=== PATIENT | female | born 1960 | race Caucasian/White ===

== ENCOUNTER → 2016-07-04 | Outpatient (REF) | payer OTHER ==
[2016-07-04 18:37] LABS: TOTAL PROTEIN 7.1 GM/DL (6.4-8.2)
[2016-07-04 18:50] LABS: BASO # 0.1 K/mm3 (0.0-0.2); BASO % 0.7 % (0.0-1.0); EOS % 20.5 % (0.0-3.0); LARGE UNSTAINED CELL # 0.1 K/mm3 (0.0-0.4); LARGE UNSTAINED CELL % 1.3 % (0.0-4.0); LYMPH # 2.8 K/mm3 (1.5-4.5); LYMPH % 28.5 % (24.0-44.0); MEAN CORPUSCULAR HEMOGLOBIN 30.1 pg (27.0-33.0); MEAN CORPUSCULAR VOLUME 93.9 fl (80.0-96.0); MONO # 0.5 K/mm3 (0.0-0.8); MONO % 5.1 % (0.0-5.0); NEUTROPHILS # 4.2 K/mm3 (1.8-7.7); NEUTROPHILS % 43.9 % (36.0-66.0); PLATELET COUNT, AUTOMATED 272 k/mm3 (150-450); RED CELL DISTRIBUTION WIDTH 12.4 % (11.5-14.5); WHITE BLOOD COUNT 9.6 K/mm3 (4.0-10.0)
[2016-07-04 20:13] LABS: ERYTHROCYTE SEDIMENTATION RATE 12 mm/hr (0-30)
[2016-07-06 11:24] LABS: ALBUMIN % 62.3 % (55.8-66.1); GAMMA GLOBULIN % 10.5 % (11.1-18.8)
[2016-07-06 11:25] LABS: ALBUMIN 4.42 GM/DL (3.29-5.55)
== END ==
LOC: M SFHCCLAY 11:29
PROVIDERS: ATTEND Family Medicine
DX: J32.9 Chronic sinusitis, unspecified (principal); H10.13 Acute atopic conjunctivitis, bilateral

== ENCOUNTER → 2016-07-13 | Outpatient (REF) | payer OTHER | LOC: M SFHCCLAY 15:46 | PROVIDERS: ATTEND Family Medicine | DX: D72.1 Eosinophilia (principal) ==

== ENCOUNTER → 2016-07-14 | Outpatient (REF) | payer OTHER ==
[~2016-07-14] MED LIST: ADV250INH; ALLE180T33 PO; MONT10TA2; MUCI30TA2 PO; PANT40TA2; PATA0.2S; PROA1AER
== END ==
LOC: M SFHCCLAY 23:59
PROVIDERS: ATTEND Family Medicine
DX: D72.1 Eosinophilia (principal); J45.41 Moderate persistent asthma with (acute) exacerbation

== ENCOUNTER → 2016-07-15 | Outpatient (REF) | payer OTHER | LOC: M SFHCCLAY | PROVIDERS: ATTEND Family Medicine | DX: D72.1 Eosinophilia (principal); J45.41 Moderate persistent asthma with (acute) exacerbation ==

== ENCOUNTER → 2016-07-16 | Outpatient (REF) | payer OTHER ==
[2016-07-16 18:01] LABS: MEAN CORPUSCULAR HEMOGLOBIN 30.4 pg (27.0-33.0); MEAN CORPUSCULAR HGB CONC 32.9 g/dl (32.0-36.5); MEAN CORPUSCULAR VOLUME 92.4 fl (80.0-96.0); PLATELET COUNT, AUTOMATED 229 k/mm3 (150-450); RED CELL DISTRIBUTION WIDTH 12.3 % (11.5-14.5); WHITE BLOOD COUNT 10.6 K/mm3 (4.0-10.0)
[2016-07-16 21:17] LABS: BASOPHILS 2 % (0-4); EOSINOPHILS 32 % (0-5)
== END ==
LOC: M SFHCCLAY 10:48
PROVIDERS: ATTEND Family Medicine
DX: D72.1 Eosinophilia (principal); J45.41 Moderate persistent asthma with (acute) exacerbation

== ENCOUNTER 2016-07-19 02:36 | Emergency (ER) | payer BC, OTHER ==
[2016-07-19] MEDS ORDERED: methylPREDNISolone INJ 125 MG/2 ML VIAL (J2930) IV ONE (03:00)
[2016-07-19] MEDS ORDERED: diphenhydrAMINE INJ 50MG/ML VIAL (J1200) IV ONE (03:00)
[2016-07-19] MEDS ORDERED: FAMOTIDINE IV BAG 20 MG in APPROPRIATE DILUENT 1 EA IV ONE (03:00)
[2016-07-19] MEDS ORDERED: MUCI30TA2 PO (03:01)
[2016-07-19] MEDS ORDERED: ALLE180T33 PO (03:01)
[2016-07-19] MEDS ORDERED: ADV250INH (03:01)
[2016-07-19] MEDS ORDERED: PROA1AER (03:01)
[2016-07-19] MEDS ORDERED: PATA0.2S (03:01)
[2016-07-19] MEDS ORDERED: PANT40TA2 (03:01)
[2016-07-19] MEDS ORDERED: MONT10TA2 (03:01)
[2016-07-19 04:19] VITALS: BP 142/75
== END 2016-07-19 04:25 | disposition home or self-care (01) ==
LOC: M ED 03:41
DX: H57.8 Other specified disorders of eye and adnexa (principal); J45.909 Unspecified asthma, uncomplicated; J32.9 Chronic sinusitis, unspecified; Z79.899 Other long term (current) drug therapy; D64.9 Anemia, unspecified
CPT/HCPCS: 96374; 96375; 99284; J1200; J2930

== ENCOUNTER → 2016-07-19 | Outpatient (REF) | payer OTHER ==
[2016-07-19 16:48] LABS: ANION GAP 11 MEQ/L (8-16); BLOOD UREA NITROGEN 12 MG/DL (7-18); CALCIUM LEVEL 8.7 MG/DL (8.5-10.1); CARBON DIOXIDE LEVEL 26 MEQ/L (21-32); CHLORIDE LEVEL 106 MEQ/L (98-107); CREATININE FOR GFR 0.74 MG/DL (0.55-1.02); GLOMERULAR FILTRATION RATE > 60.0 (>51); GLUCOSE, FASTING 137 MG/DL (70-105); POTASSIUM SERUM 4.2 MEQ/L (3.5-5.1); SODIUM LEVEL 143 MEQ/L (136-145)
[2016-07-19 16:49] LABS: BASO % 0.3 % (0.0-1.0); EOS # 0.3 K/mm3 (0.0-0.50); LYMPH # 0.5 K/mm3 (1.5-4.5); LYMPH % 4.9 % (24.0-44.0); MEAN CORPUSCULAR HEMOGLOBIN 29.5 pg (27.0-33.0); MEAN CORPUSCULAR HGB CONC 32.2 g/dl (32.0-36.5); MEAN CORPUSCULAR VOLUME 91.6 fl (80.0-96.0); MONO # 0.2 K/mm3 (0.0-0.8); MONO % 1.7 % (0.0-5.0); NEUTROPHILS # 7.8 K/mm3 (1.8-7.7); NEUTROPHILS % 89.4 % (36.0-66.0); RED CELL DISTRIBUTION WIDTH 12.4 % (11.5-14.5); WHITE BLOOD COUNT 8.8 K/mm3 (4.0-10.0)
[2016-07-19 16:52] LABS: EOS % 3.4 % (0.0-3.0)
[2016-07-19 17:20] LABS: EOSINOPHILS 2 % (0-5)
== END ==
LOC: M SFHCCLAY 11:14
PROVIDERS: ATTEND Family Medicine
DX: H10.13 Acute atopic conjunctivitis, bilateral (principal)

== ENCOUNTER → 2016-07-20 | Outpatient (CLI) | payer BC, OTHER ==
--- NOTE | 2016-07-20 10:35 | REP ---
Chest x-ray: Two views. History: Sinus infection. Allergic reaction. Comparison chest x-ray July 28, 2015. Findings: The lungs are symmetrically aerated. Pleural angles are sharp. There is a somewhat linear area of increased density in the parenchyma of the left upper lobe in the lingular segment adjacent left heart border which may be discoid atelectasis. Cardiac silhouette is slightly prominent with cardiothoracic ratio 15.7 cm over 29.0 cm. Previous cardiothoracic ratio was 13.2 over 28.9 cm. Pulmonary vasculature is not increased. Impression: Linear area of increased density in the lingular segment left upper lobe may be discoid atelectasis. Mildly prominent heart on today's chest x-ray. Signed by Dominik Yuan MD 07/20/2016 10:46 A
[2016-07-20 15:25] LABS: COMPLEMENT C3 130 MG/DL (90-180); COMPLEMENT C4 23.9 MG/DL (10-40); IMMUNOGLOBULIN A 69.5 MG/DL (70-400); IMMUNOGLOBULIN G 765 MG/DL (681-1648); IMMUNOGLOBULIN M 85.3 MG/DL (40-230)
[2016-07-24 00:10] LABS: COMPLEMENT TOTAL (CH50) 50 U/mL (42-60); IgG SERUM (part of Subclasses) 716 mg/dL (700-1600); IgG Subclass 1 492 mg/dL (422-1292); IgG Subclass 2 144 mg/dL (117-747); IgG Subclass 3 42 mg/dL (41-129); IgG Subclass 4 18 mg/dL (1-291)
== END ==
LOC: M SMT 09:36
PROVIDERS: ATTEND Allergy & Immunology Allergy
DX: J45.40 Moderate persistent asthma, uncomplicated (principal); K21.9 Gastro-esophageal reflux disease without esophagitis; J30.9 Allergic rhinitis, unspecified

== ENCOUNTER → 2016-08-10 | Outpatient (REF) | payer OTHER | LOC: M SFHCCLAY 07:51 | PROVIDERS: ATTEND Nurse Practitioner Family | DX: E78.4 Other hyperlipidemia (principal); E55.9 Vitamin D deficiency, unspecified ==

== ENCOUNTER → 2016-08-10 | Outpatient (CLI) | payer BC, OTHER ==
--- NOTE | 2016-08-10 10:19 | REP ---
Clinical: Eosinophilia. Technique: Real time nguyen scale ultrasound examination using curved array transducer. Findings: Liver and pancreas are normal in contour, size, echogenicity without focal hepatic or pancreatic lesions identified. The gallbladder is normal and without gallstones, wall thickening, or pericholecystic fluid. No biliary ductal dilatation is appreciated and the common bile duct measures 4 mm diameter. The right kidney is normal in reniform shape without hydronephrosis measuring 11.1 x 4.8 x 4.2 cm with 8 mm lower pole cyst. No ascites in the visualized right upper quadrant. Impression: Essentially normal right upper quadrant ultrasound examination. 8 mm lower pole renal cyst. Signed by Geremias Roman MD 08/10/2016 10:10 A
== END ==
LOC: M RAD 08:42
PROVIDERS: ATTEND Family Medicine
DX: D72.1 Eosinophilia (principal)

== ENCOUNTER → 2016-09-07 | Outpatient (CLI) | payer BC, OTHER ==
--- NOTE | 2016-09-07 11:26 | REP ---
MAXILLOFACIAL CT WITHOUT CONTRAST: HISTORY: Chronic maxillary sinusitis. 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 The patient is status post bilateral uncinectomy and partial ethmoidectomy. Mild mucosal thickening is present in the residual ethmoid sinuses. Moderate mucosal thickening is present in the sphenoid and right maxillary sinuses. There is almost complete opacification of the left maxillary sinus. There is complete opacification of the right frontal sinus. The middle and inferior nasal turbinates are partially paradoxical. The nasal septum is midline. The nasal septum abuts the middle nasal turbinates. The cribriform plate, medial vallejo of the orbits and optic canals are intact. The carotid canals form a segment of the posterolateral vallejo of the sphenoid sinus. IMPRESSION: 1. Postoperative change as described above. 2. Sinus mucosal thickening as described above. The mucosal thickening is increased compared to the previous study. Signed by Isra Rosario MD 09/07/2016 11:37 A
== END ==
LOC: M RAD 10:09
PROVIDERS: ATTEND Family Medicine
DX: J32.0 Chronic maxillary sinusitis (principal)

== ENCOUNTER → 2016-09-14 | Outpatient (CLI) | payer BC, OTHER ==
--- NOTE | 2016-09-14 09:27 | REP ---
CT NECK WITHOUT CONTRAST: HISTORY: Chronic cough. The naso-, jessie-, and hypopharynx, larynx, and subglottic trachea are normal in appearance. The salivary and thyroid glands are normal. Small lymph nodes less than 1 cm in size are present in the internal jugular chains, posterior triangles, submandibular, submental and supraclavicular areas. Minimal degenerative change is present in the cervical spine. The lung apices are clear. Mucosal thickening is present in the maxillary and sphenoid sinuses. IMPRESSION: There is no neck mass or adenopathy. Signed by Isra Rosario MD 09/14/2016 10:56 A
--- NOTE | 2016-09-14 14:21 | REP ---
REASON: Chronic cough and wheezing. The lack of intravenous contrast decreases the sensitivity of the exam. There is no mediastinal or hilar adenopathy. T here are no pleural or pericardial effusions. The imaged upper abdomen and imaged osseous structures are within normal limits. Evaluation of the lung hood show no abnormal nodules, masses, or opacities. Minimal fibrotic changes are suspected in the inferior right upper lobe anteriorly. IMPRESSION: No acute disease with findings as described above. Signed by Marbin Mehta DO 09/14/2016 05:01 P
== END ==
LOC: M RAD 08:09
PROVIDERS: ATTEND Family Medicine
DX: R05 Cough (principal); R06.2 Wheezing

== ENCOUNTER → 2016-09-14 | Outpatient (CLI) | payer BC, OTHER ==
[2016-09-20 14:18] LABS: STREP PNEUMO TYPE 12F 2.7 ug/mL (>1.3); STREP PNEUMO TYPE 18C 2.1 ug/mL (>1.3); STREP PNEUMO TYPE 19A 1.1 ug/mL (>1.3); STREP PNEUMO TYPE 19F 2.2 ug/mL (>1.3); STREP PNEUMO TYPE 23F 0.8 ug/mL (>1.3); STREP PNEUMO TYPE 6B 0.6 ug/mL (>1.3); STREP PNEUMO TYPE 7F 4.6 ug/mL (>1.3); STREP PNEUMO TYPE 9N 3.9 ug/mL (>1.3); STREP PNEUMO TYPE 9V 4.1 ug/mL (>1.3)
== END ==
LOC: M SMT 09:10
PROVIDERS: ATTEND Allergy & Immunology Allergy
DX: D84.9 Immunodeficiency, unspecified (principal)

== ENCOUNTER 2016-10-19 12:03 | Outpatient (RCR) | payer BC, OTHER ==
[~2016-10-19 12:03] MED LIST changes: -ADV250INH; +ADV250INH INH; -MONT10TA2; +MONT10TA2 PO; -MUCI30TA2 PO; +MUCI30TA5 PO; -PROA1AER; +PROAAER10 INH
== END 2016-11-09 ==
LOC: M ST 12:03
PROVIDERS: ATTEND Family Medicine
DX: J38.3 Other diseases of vocal cords (principal)

== ENCOUNTER 2016-12-03 20:39 | Inpatient (IN) | payer BC, OTHER ==
[~2016-12-03] VITALS: Ht 157.5 cm; Wt 87.5 kg
[2016-12-03] MEDS ORDERED: LORazepam 2 MG/ML VIAL (J2060) IV STA (21:01)
[2016-12-03] MEDS ORDERED: OLOP1DRO OU (21:02)
[2016-12-03] MEDS ORDERED: LEVO500T3 PO (21:02)
[2016-12-03] MEDS ORDERED: IBUP-1114 PO (21:02)
[2016-12-03] MEDS ORDERED: FLON1SPR (21:02)
[2016-12-03] MEDS ORDERED: methylPREDNISolone INJ 125 MG/2 ML VIAL (J2930) IV ONE (21:15)
[2016-12-03] MEDS: IPRATROPIUM 0.5MG/ALBUTEROL 2.5MG INH SOL UD 3ML (DUONEB)(J7620) NEB SCH ×2 (21:17→21:18)
[2016-12-03 23:55] LABS: ABG BASE EXCESS 0.1 (-2.0-2.0); ABG HCO3 24.6 MEQ/L (22.0-26.0); ABG PARTIAL PRESSURE CO2 39.3 mmHg (35.0-45.0); ABG PARTIAL PRESSURE O2 54.3 mmHg (75.0-100.0); ABG STANDARD HCO3 24.4 MEQ/L (22.0-26.0); ABG TOTAL CO2 25.8 MEQ/L (22.0-29.0); ABG pH (ARTERIAL) 7.414 UNITS (7.350-7.450)
[2016-12-04] VITALS (7 sets, daily range): BP systolic 132–161; BP diastolic 67–93; O2SAT 93
[2016-12-04 00:23] LABS: BASO % 0.3 % (0.0-1.0); EOS # 4.6 K/mm3 (0.0-0.50); EOS % 29.1 % (0.0-3.0); LARGE UNSTAINED CELL # 0.1 K/mm3 (0.0-0.4); LARGE UNSTAINED CELL % 0.7 % (0.0-4.0); LYMPH # 1.1 K/mm3 (1.5-4.5); LYMPH % 6.1 % (24.0-44.0); MEAN CORPUSCULAR HEMOGLOBIN 30.4 pg (27.0-33.0); MEAN CORPUSCULAR HGB CONC 33.4 g/dl (32.0-36.5); MONO # 0.2 K/mm3 (0.0-0.8); MONO % 1.5 % (0.0-5.0); NEUTROPHILS # 9.8 K/mm3 (1.8-7.7); NEUTROPHILS % 62.3 % (36.0-66.0); PLATELET COUNT, AUTOMATED 198 k/mm3 (150-450); RED CELL DISTRIBUTION WIDTH 12.9 % (11.5-14.5); WHITE BLOOD COUNT 15.7 K/mm3 (4.0-10.0)
[2016-12-04] MEDS ORDERED: VITMTA PO (00:37)
[2016-12-04] MEDS ORDERED: PANT20TA PO (00:37)
[2016-12-04] MEDS ORDERED: PATA0.2S OU (00:38)
--- NOTE | 2016-12-04 01:00 | REP ---
Clinical: Chest pain and wheezing. Technique: PA and lateral. Comparison: 07/20/2016. Findings: Mediastinum and cardiac silhouette are normal. Lung hood demonstrate diffuse chronic stable interstitial changes. Subtle superimposed scattered atelectasis cannot be excluded. No discrete focal consolidation, effusion, or pneumothorax. Skeletal structures are intact. Impression: Chronic stable changes. Cannot exclude subtle atelectasis. Signed by Geremias Roman MD 12/04/2016 12:51 A
[2016-12-04 01:04] LABS: ANION GAP 9 MEQ/L (8-16); BLOOD UREA NITROGEN 11 MG/DL (7-18); CALCIUM LEVEL 8.6 MG/DL (8.5-10.1); CARBON DIOXIDE LEVEL 26 MEQ/L (21-32); CHLORIDE LEVEL 105 MEQ/L (98-107); GLOMERULAR FILTRATION RATE > 60.0 (>51); GLUCOSE, FASTING 141 MG/DL (70-105); POTASSIUM SERUM 3.6 MEQ/L (3.5-5.1); SODIUM LEVEL 140 MEQ/L (136-145)
[2016-12-04] MEDS ORDERED: IPRATROPIUM 0.5MG/ALBUTEROL 2.5MG INH SOL UD 3ML (DUONEB)(J7620) NEB PRN (02:00)
[2016-12-04] MEDS ORDERED: ACETAMINOPHEN TAB 650MG DOSE (2X325MG) PO PRN (02:15)
[2016-12-04] MEDS ORDERED: ONDANSETRON 4MG/2ML VIAL (J2405) IV PRN (02:15)
--- NOTE | 2016-12-04 02:43 | HPEPDOC ---
General Date of Admission 12/04/16 Primary Care Physician: Ady Platt MD Attending Physician: SEVERO DUKE MD Chief Complaint The patient is a 56-year-old female admitted with a reason for visit of asthma exacerbation. cc:" Can't breathe", coughing so hard, wheezing keeps her up, eyes are bulging and itchy, sees double vision now Source: Patient Exam Limitations: No limitations Timing/Duration: Week(s) (1 ) Severity: Severe Associated Symptoms: Cough, Loss of appetite, Nausea, Shortness of breath, Weakness, Dizziness History of Present Illness Ms. Yeung is a 56-year-old female with past medical history of allergy-induced asthma, vocal cord dysfunction, gastroesophageal reflux disease, hiatal hernia, past history of hepatitis C which was successfully treated, and a history of a left Achilles tendon tear who presents for a one-week history of progressively worsening shortness of breath. Symptoms began 1 week ago last Saturday when patient started to notice her allergies were coming on. States she was around hay in the afternoon and her vocal cord dysfunction/asthma began to act up. Her face broke out, became blotchy, itchy, weepy, and red. Could only take shallow breaths. On Saturday, was hoping to get through it and used speech therapy techniques she learned 1 month ago: of relaxation, mental control, and deep breaths to stop her vocal cord dysfunction, but this did not work to improve it. Went on Saturday, November 19 to the [facility] in [place] who left a space in the L upper jaw (molar). Saw Dr. Miller the [facility] on Saturday who was afraid that there was an oral infection and that patient's "lungs were filling up" according to patient. He started her on doxycycline. On Saturday, patient developed coughing and diarrhea and called Dr. Miller who recommended for her to go to the Urgent Care. She went to the Urgent Care on Saturday who changed the antibiotic to levaquin. However, patient' s breathing still did not get better. States her SOB was getting worse and worse. Today, admits to SOB which was improved with ED nebulizer treatment, was nauseous this morning and yesterday, weakness, dizziness, cough, phlegm/mucous production which is yellow and brown-tinged at times, and admits to pain in her diaphragm and abdomen from coughing so hard. Admits to itchy, waterry eyes. Admits to runny nose, sore throat. Denies headache, and denies diarrhea today. Admits to chronic leg swelling that began about 1 year ago. Was diagnosed with vocal cord dysfunction by Dr. Miller about 3 months ago. Took speech therapy class about 1 month ago. Sees ENT in [place]. States the vocal cord dysfunction makes her have a spasm from coughing which shuts her throat off from getting any air. Patient admits she developed asthma later on in life in the mid to late 40s-50s. 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 Raises a vegetable garden. Was diagnosed with mold allergy last year on Feb 01, 2016. Receives weekly allergy shots as well as xolair shots for her lungs every 2 weeks to stop an allergic reaction to her lungs from allergies. Patient is not on home O2, is a nonsmoker, has an allergy to dust mites and mold. In the ED, patient received nebulizer treatment with duonebs, solumedrol, and ativan with reported improvement in her breathing. CXR showed chronic stable interstitial changes and could not rule subtle atelectasis. MEDICATIONS: She uses rescue inhaler albuterol QID PRN, advair 250 mg BID daily, singulair 10 mg qPM, flonase 1 puff daily, mucinex PRN chest congestion, ibuprofen for pain/headache, fexofenadine 180 mg qdaily, epipen PRN allergic reaction. Uses valtrex 2 1 gm tablets PO q12 hours at first sign of cold sore. Also uses valtrex cream at same time. Last but not least, uses pataday eyedrops. Please see below for full list of home medications. Home Medications Scheduled (Mucinex Dm 30-600 mg) 1 Tab Tab, 1 TAB PO DAILY, (Reported) (Flonase Allergy Relief) 50 Mcg/Act Spr, 50 MCG NA DAILY, (Reported) (Pataday) 0.2 % Debby, 1 DROP OU DAILY, (Reported) Albuterol Sulfate (Albuterol Sulfate) 2.5 Mg/0.5 Ml Neb, 2.5 MG NEB Q6H Cefuroxime Axetil (Ceftin) 500 Mg Tab, 500 MG PO BID Fexofenadine Hydrochloride (Nury Allergy) 180 Mg Tab, 180 MG PO DAILY, ( Reported) Multivitamins *[facility] STOCKED* (Thera M Plus *[facility] STOCKED*) 1 Tab Tab, 1 TAB PO DAILY, (Reported) Pantoprazole Sodium (Pantoprazole Sodium) 20 Mg Tab, 20 MG PO DAILY, (Reported) Prednisone (Prednisone) 20 Mg Tab, 20 MG PO ASDIRECTED Take 20 mg twice a day x 4 days, then 20 mg daily x 3 days, then 10 mg daily x 3 days Salmeterol/Fluticasone (Advair Diskus 250-50 Mcg/Dose) 14 Puff/Inhaler Aerp, 1 PUFF INH BID, (Reported) Scheduled PRN Albuterol Sulfate (Proair Hfa) 108 Mcg/Act Aer, 2 PUFFS INH Q4H PRN for SHORTNESS OF BREATH, (Reported) Ibuprofen (Ibuprofen) 400 Mg Tab, 400 MG PO Q6H PRN for PAIN, (Reported) Allergies Coded Allergies: Doxycycline (Unverified Adverse Reaction, Intermediate, DIARRHEA, 12/04/16) Past Medical History Medical History Allergy-induced asthma Seasonal Allergies: mold and dust mites: sneezing/itchy watery eyes + SOB Vocal cord dysfunction Gastroesophageal reflux disease Hiatal hernia Past history of hepatitis C which was successfully treated History of a left Achilles tendon tear Surgical History D&C C Section Oophorectomy bilateral 2009 Tonsillectomy Foot Surgery-Bunionectomy and bone spur removed-right Colonoscopy 03/20 Upper Endoscopy 08/19 Colonoscopy and Upper Endoscopy 05/2014 Hysterectomy, total with BSO Sinus surgery 04/23/2016 L Root Canal Surgery 3 years earlier Family History Father: 48 years HTN Mother: alive, 76 years, hx of ovarian ca at age 70, season allergies to leaves and grass, gets allergy shot Paternal Grandfather: , rectal cancer Maternal Grandmother: , ovarian cancer 2 brothers, 2 sisters 1 sister and 1 brother: diverticulitis 1 17 yo son with seasonal allergies to leaves and grass, gets allergy shot Denies fam hx of colon or breast cancer Social History * Smoker: Denies Alcohol: rarely Drugs: denies Recent Travel/Sick Contacts: Denies: Recent travel, Recent sick contacts Pets in the home: Dog(s), Other (Lives on farm with 5 dogs, 8 goats, 20 cows, 40 chickens) Psychosocial History: No pertinent psych hx FULL CODE STATUS Healthcare Proxy and POA is : Real Yeung No living will Review of Symptoms Constitutional: Denies: Chills, Fever ENT: Reports: Sinus Congestion, Sore Throat, Denies: Head Aches, Ear Pain Skin: Reports: Breakdown (of facial skin as described in HPI), Denies: Rash, Lesions Pulmonary: Reports: Dyspnea, Cough, Other Symptoms (+runny nose, sore throat, phlegm production) Cardiovascular: Denies: Chest Pain Gastrointestinal: Reports: Nausea, Abdominal Pain (from coughing), Constipation , Denies: Vomiting, Diarrhea, Other Symptoms (admits to diaphragm hurting from coughing) Genitourinary: Denies: Dysuria, Hematuria Hematologic: Denies: Bruising Endocrine: Denies: Polydipsia, Polyphagia Musculoskeletal: Denies: Muscle Pain Neurological: Reports: Weakness Psych: Reports: Anxiety Other systems admits to chronic lower extremity edema bilaterally that began 1 year ago Physical Examination General Exam: Positive: Alert, Cooperative, Moderate Distress Eye Exam: Positive: Conjunctiva & lids normal ENT Exam: Positive: Atraumatic, Mucous membr. moist/pink, Pharynx Normal, Tongue Midline, Tympanic Membranes Normal, Ext Auditory Canal Nml, Pinna Normal , Negative: Pharyngeal Edema Neck Exam: Positive: Supple, Negative: JVD, thyromegaly, Lymphadenopathy Chest Exam: Positive: Wheezing, Other (No egophony. +end expiratory wheezing in all lung hood with increased expiratory phase to inspiratory phase. No dullness to percussion.) Heart Exam: Positive: Tachycardic, Regular Rhythm, Normal S1, Normal S2, Negative: Gallops, Murmurs, Rubs Abdomen Exam: Positive: Normal bowel sounds, Soft, Negative: Tenderness, Hepatospenomegaly, Mass Extremity Exam: Positive: Edema, Normal pulses, Negative: Clubbing, Cyanosis, Tenderness Skin Exam: Positive: Nl turgor and temperature, Rash Neuro Exam: Positive: Sensation Intact, Other (no focal neurologic deficits appreciated bilaterally) Psych Exam: Positive: Mental status NL, Mood NL Vital Signs Vital Signs Date Time Temp Pulse Resp B/P (MAP) Pulse Ox O2 Delivery O2 Flow Rate FiO2 12/04/16 01:24 98.2 110 24 110/53 (72) 90 Nasal Cannula 2.0 Laboratory Data Labs 24H Laboratory Tests 2 12/03/16 23:37: White Blood Count 15.7H, Red Blood Count 4.62, Hemoglobin 14.0, Hematocrit 42.0 , Mean Corpuscular Volume 91.0, Mean Corpuscular Hemoglobin 30.4, Mean Corpuscular Hemoglobin Concent 33.4, Red Cell Distribution Width 12.9, Platelet Count 198, Neutrophils (%) (Auto) 62.3, Lymphocytes (%) (Auto) 6.1L, Monocytes ( %) (Auto) 1.5, Eosinophils (%) (Auto) 29.1H, Basophils (%) (Auto) 0.3, Neutrophils # (Auto) 9.8H, Lymphocytes # (Auto) 1.1L, Monocytes # (Auto) 0.2, Eosinophils # (Auto) 4.6H, Basophils # (Auto) 0.0, Large Unclassified Cells % 0.7, Large Unclassified Cells # 0.1, Blood Gas Bicarbonate Standard 24.4, Arterial Blood pH 7.414, Arterial Blood Partial Pressure CO2 39.3, Arterial Blood Partial Pressure O2 54.3L, Arterial Blood Total CO2 25.8, Arterial Blood HCO3 24.6, Arterial Blood Base Excess 0.1, Arterial Blood Oxygen Saturation 88.9L, Anion Gap 9, Glomerular Filtration Rate > 60.0, Blood Urea Nitrogen 11, Creatinine 0.60, Sodium Level 140, Potassium Level 3.6, Chloride Level 105, Carbon Dioxide Level 26, Calcium Level 8.6, C-Reactive Protein, Quantitative 1.43H CBC/BMP Laboratory Tests 12/03/16 23:37 Red Blood Count 4.62, Mean Corpuscular Volume 91.0, Mean Corpuscular Hemoglobin 30.4, Mean Corpuscular Hemoglobin Concent 33.4, Red Cell Distribution Width 12.9 , Neutrophils (%) (Auto) 62.3, Lymphocytes (%) (Auto) 6.1 L, Monocytes (%) (Auto ) 1.5, Eosinophils (%) (Auto) 29.1 H, Basophils (%) (Auto) 0.3, Neutrophils # ( Auto) 9.8 H, Lymphocytes # (Auto) 1.1 L, Monocytes # (Auto) 0.2, Eosinophils # ( Auto) 4.6 H, Basophils # (Auto) 0.0, Calcium Level 8.6 RAD Interpretation STUDY: CXR ( CXR showed chronic stable interstitial changes and could not rule subtle atelectasis. ) Rad Actions: Wet Read Reviewed, Films Reviewed, Discussed with the pt RAD Interpretation: Other Result Comments: ( CXR showed chronic stable interstitial changes and could not rule subtle atelectasis. ) Assessment/Plan 56 yo F presents for acute asthma exacerbation secondary to allergen exposure. She is allergic to mold and dust mites. Has vocal cord dysfunction. Labs were remarkable for elevated WBC of 15.7. ABG was unremarkable. CMP was pending. CXR showed chronic stable interstitial changes and could not rule subtle atelectasis. Will admit to inpatient telemetry unit. Obtain EKG. Obtain sputum cx, blood cx x 2 sent, respiratory panel sent. Begin IV solumedrol 60 mg q8h, duonebs, levaquin IV, mucinex. O2 supplementation therapy. Will follow CBC, CMP, CRP, and Mg in the morning. Will continue to monitor respiratory status. Will continue home medications for chronic medical problems as much as possible for medical hx listed below: Allergy-induced asthma Seasonal Allergies: mold and dust mites: sneezing/itchy watery eyes + SOB Vocal cord dysfunction Gastroesophageal reflux disease Hiatal hernia Past history of hepatitis C which was successfully treated History of a left Achilles tendon tear DVT ppx: lovenox FULL CODE STATUS Immunizations as per protocol. Plan / VTE VTE Prophylaxis Ordered?: Yes (lovenox) GME ATTESTATION E ATTESTATION My preceptor for this patient encounter was Dr. Severo Duke, and was physically present in the building during the encounter and was fully available. As needed , all aspects of the patient interview, examination, medical decision making process, and medical care plan development were reviewed and approved by the preceptor. Preceptor is aware and concurs with the plan as stated in the body of this note and will attest to such by his/her cosignature. GME ATTESTATION GME ATTESTATION My preceptor for this patient encounter was physically present in the building during the encounter and was fully available. As needed, all aspects of the patient interview, examination, medical decision making process, and medical care plan development were reviewed and approved by the preceptor. Preceptor is aware and concurs with the plan as stated in the body of this note and will attest to such by his/her cosignature. ATTENDING NOTE I have both independently examined this patient as well as reviewed the H&P. I have discussed in detail with the resident the findings and plan of treatment as documented in the residents note. I will continue to follow the patient and offer further guidance to the patients care as necessary during this hospital stay. Severo DELGADO,IHLTON OGME-1 Dec 04, 2016 02:18 SEVERO DUKE MD Dec 26, 2016 07:19
[2016-12-04] MEDS: LevoFLOXacin IV 750 MG in APPROPRIATE DILUENT 1 EA IV SCH (03:25)
[2016-12-04] MEDS ORDERED: LevoFLOXacin/DEXTROSE 750 MG/150 ML BAG (J1956) As Ordered ONE (03:27)
[2016-12-04 05:22] LABS: MEAN CORPUSCULAR HEMOGLOBIN 31.3 pg (27.0-33.0); MEAN CORPUSCULAR HGB CONC 33.9 g/dl (32.0-36.5); MEAN CORPUSCULAR VOLUME 92.1 fl (80.0-96.0); WHITE BLOOD COUNT 12.7 K/mm3 (4.0-10.0)
[2016-12-04 06:45] LABS: ANION GAP 11 MEQ/L (8-16); BLOOD UREA NITROGEN 10 MG/DL (7-18); CALCIUM LEVEL 8.5 MG/DL (8.5-10.1); CARBON DIOXIDE LEVEL 24 MEQ/L (21-32); CHLORIDE LEVEL 104 MEQ/L (98-107); CREATININE FOR GFR 0.55 MG/DL (0.55-1.02); GLOMERULAR FILTRATION RATE > 60.0 (>51); GLUCOSE, FASTING 177 MG/DL (70-105); MAGNESIUM LEVEL 2.1 MG/DL (1.8-2.4); POTASSIUM SERUM 3.5 MEQ/L (3.5-5.1); SODIUM LEVEL 139 MEQ/L (136-145)
[2016-12-04] MEDS: IPRATROPIUM 0.5MG/ALBUTEROL 2.5MG INH SOL UD 3ML (DUONEB)(J7620) NEB SCH ×4 (07:59→18:05)
[2016-12-04] MEDS: ENOXAPARIN 40 MG/0.4 ML SYRINGE (J1650) SC SCH (08:54)
[2016-12-04] MEDS: FEXOFENADINE 60 MG TAB PO SCH (08:55)
[2016-12-04] MEDS: PANTOPRAZOLE 20 MG TAB PO SCH ×2 (08:55→09:00)
[2016-12-04] MEDS: MULTIVITAMINS/MINERALS THERAP 1 TAB PO SCH (08:56)
[2016-12-04] MEDS: FLUTICASONE PROP 0.05% NASAL SPRAY 16 GM (FLONASE) SCH (08:56)
[2016-12-04] MEDS: guaiFENesin ER 600 MG TAB PO SCH ×2 (08:56→20:29)
[2016-12-04] MEDS: methylPREDNISolone INJ 125 MG/2 ML VIAL (J2930) IV SCH ×3 (08:57→20:29)
[2016-12-04] MEDS: SENOKOT S TAB PO SCH ×2 (08:59→20:30)
[2016-12-04] MEDS: ADVAIR HFA 115/21MCG INHALER INH SCH (09:00)
--- NOTE | 2016-12-04 10:28 | ECGEPIP ---
Stationary ECG Study [facility] Test Date: 2016-12-04 Pat Name: GLYNN ARCE Department: Room: [place] [address] Gender: F Import/Export Specialist: : 1960 Requested By: SEVERO DUKE Order Number: [id number] Reading MD: Butch Cedillo Measurements Intervals [place] Rate: 97 P: 60 SD: 161 QRS: 54 QRSD: 97 T: 33 QT: 356 QTc: 452 Interpretive Statements SINUS RHYTHM POSSIBLE LEFT ATRIAL ENLARGEMENT Nonspecific T wave abnormality Electronically Signed On 12-04-2016 10:28:14 EDT by Butch Cedillo
--- NOTE | 2016-12-04 15:01 | IPNPDOC ---
Subjective Date Seen The patient was seen on 12/04/16. Subjective Chief Complaint/HPI The patient is a 56-year-old female admitted with a reason for visit of Asthma Exacerabtion. General: Denies: Chills ENT: Reports: Sinus Congestion Pulmonary: Reports: Dyspnea, Cough Cardiovascular: Denies: Palpitations, Orthopnea Gastrointestinal: Reports: Abdominal Pain (associated with coughing), Denies: Nausea Hematologic: Denies: Bruising, Purpura Endocrine: Denies: Polyuria Musculoskeletal: Denies: Neck Pain Objective Physical Examination General Exam: Positive: Alert, Cooperative, Moderate Distress Eye Exam: Positive: Conjunctiva & lids normal ENT Exam: Positive: Atraumatic, Mucous membr. moist/pink, Pharynx Normal, Tongue Midline, Tympanic Membranes Normal, Ext Auditory Canal Nml, Pinna Normal , Negative: Pharyngeal Edema Neck Exam: Positive: Supple, Negative: JVD, thyromegaly, Lymphadenopathy Chest Exam: Positive: Wheezing, Other (No egophony. +end expiratory wheezing in all lung hood with increased expiratory phase to inspiratory phase. No dullness to percussion.) Heart Exam: Positive: Tachycardic, Regular Rhythm, Normal S1, Normal S2, Negative: Gallops, Murmurs, Rubs Abdomen Exam: Positive: Normal bowel sounds, Soft, Negative: Tenderness, Hepatospenomegaly, Mass Extremity Exam: Positive: Edema, Normal pulses, Negative: Clubbing, Cyanosis, Tenderness Skin Exam: Positive: Nl turgor and temperature, Rash Neuro Exam: Positive: Sensation Intact, Other (no focal neurologic deficits appreciated bilaterally) Psych Exam: Positive: Mental status NL, Mood NL Assessment /Plan Problems (1) Asthma exacerbation Status: Acute Response to Treatment: Improving Problem Specific Plan: Consult Specialist (Will ask Dr. Pearl to see her.), Repeat Labs (2) Vocal cord dysfunction Status: Chronic Response to Treatment: Stable (3) Allergy to dust Status: Chronic Problem Specific Plan: Consult Specialist (4) Allergy to mold Status: Chronic Problem Specific Plan: Consult Specialist Plan/VTE VTE Prophylaxis Ordered?: Yes (lovenox) Plan Activity: Continue Current VS, I&O, 24H, Fishbone Vital Signs/I&O Vital Signs Date Time Temp Pulse Resp B/P (MAP) Pulse Ox O2 Delivery O2 Flow Rate FiO2 12/04/16 12:00 97.3 100 20 153/75 (101) 94 Nasal Cannula 4.0 I&O- Last 24 Hours up to 6 AM 12/04/16 06:00 Intake Total 240 ml Output Total 100 ml Balance 140 ml Laboratory Data 24H LABS Laboratory Tests 2 12/03/16 23:37: White Blood Count 15.7H, Red Blood Count 4.62, Hemoglobin 14.0, Hematocrit 42.0 , Mean Corpuscular Volume 91.0, Mean Corpuscular Hemoglobin 30.4, Mean Corpuscular Hemoglobin Concent 33.4, Red Cell Distribution Width 12.9, Platelet Count 198, Neutrophils (%) (Auto) 62.3, Lymphocytes (%) (Auto) 6.1L, Monocytes ( %) (Auto) 1.5, Eosinophils (%) (Auto) 29.1H, Basophils (%) (Auto) 0.3, Neutrophils # (Auto) 9.8H, Lymphocytes # (Auto) 1.1L, Monocytes # (Auto) 0.2, Eosinophils # (Auto) 4.6H, Basophils # (Auto) 0.0, Large Unclassified Cells % 0.7, Large Unclassified Cells # 0.1, Blood Gas Bicarbonate Standard 24.4, Arterial Blood pH 7.414, Arterial Blood Partial Pressure CO2 39.3, Arterial Blood Partial Pressure O2 54.3L, Arterial Blood Total CO2 25.8, Arterial Blood HCO3 24.6, Arterial Blood Base Excess 0.1, Arterial Blood Oxygen Saturation 88.9L, Anion Gap 9, Glomerular Filtration Rate > 60.0, Blood Urea Nitrogen 11, Creatinine 0.60, Sodium Level 140, Potassium Level 3.6, Chloride Level 105, Carbon Dioxide Level 26, Calcium Level 8.6, C-Reactive Protein, Quantitative 1.43H 12/04/16 04:17: Anion Gap 11, Glomerular Filtration Rate > 60.0, Blood Urea Nitrogen 10, Creatinine 0.55, Sodium Level 139, Potassium Level 3.5, Chloride Level 104, Carbon Dioxide Level 24, Calcium Level 8.5, C-Reactive Protein, Quantitative 1.67H, Magnesium Level 2.1 CBC/BMP Laboratory Tests 12/03/16 23:37 Red Blood Count 4.62, Mean Corpuscular Volume 91.0, Mean Corpuscular Hemoglobin 30.4, Mean Corpuscular Hemoglobin Concent 33.4, Red Cell Distribution Width 12.9 , Neutrophils (%) (Auto) 62.3, Lymphocytes (%) (Auto) 6.1 L, Monocytes (%) (Auto ) 1.5, Eosinophils (%) (Auto) 29.1 H, Basophils (%) (Auto) 0.3, Neutrophils # ( Auto) 9.8 H, Lymphocytes # (Auto) 1.1 L, Monocytes # (Auto) 0.2, Eosinophils # ( Auto) 4.6 H, Basophils # (Auto) 0.0, Calcium Level 8.6 12/04/16 04:17 Red Blood Count 4.43, Mean Corpuscular Volume 92.1, Mean Corpuscular Hemoglobin 31.3, Mean Corpuscular Hemoglobin Concent 33.9, Red Cell Distribution Width 13.0 , Calcium Level 8.5 Microbiology Microbiology 12/04/16 Blood Culture, Received Pending 12/04/16 Blood Culture, Received Pending 12/04/16 Gram Stain - Final, Resulted 12/04/16 Sputum Culture, Resulted Pending 12/04/16 MRSA Screen, Received Pending 12/04/16 Respiratory Virus Panel (PCR) ([facility]) - Final, Complete Ady Platt MD Dec 04, 2016 15:01
[2016-12-04] MEDS: SLF 3 ML SYR IV SCH (20:30)
[2016-12-04] MEDS ORDERED: SLF 3 ML SYR IV PRN (20:30)
[2016-12-04] MEDS ORDERED: MONTELUKAST 10 MG TAB PO SCH (21:00)
[2016-12-05] MEDS: LevoFLOXacin IV 750 MG in APPROPRIATE DILUENT 1 EA IV SCH (00:20)
[2016-12-05] MEDS: SLF 3 ML SYR IV SCH ×3 (04:51→21:52)
[2016-12-05] MEDS: methylPREDNISolone INJ 125 MG/2 ML VIAL (J2930) IV SCH (04:51)
[2016-12-05 06:00] VITALS: BP 106/67
[2016-12-05] MEDS: IPRATROPIUM 0.5MG/ALBUTEROL 2.5MG INH SOL UD 3ML (DUONEB)(J7620) NEB SCH (06:26)
[2016-12-05 06:57] LABS: MEAN CORPUSCULAR HEMOGLOBIN 30.8 pg (27.0-33.0); MEAN CORPUSCULAR HGB CONC 33.2 g/dl (32.0-36.5); MEAN CORPUSCULAR VOLUME 92.6 fl (80.0-96.0); RED CELL DISTRIBUTION WIDTH 13.1 % (11.5-14.5); WHITE BLOOD COUNT 22.8 K/mm3 (4.0-10.0)
[2016-12-05 07:05] LABS: ANION GAP 9 MEQ/L (8-16); BLOOD UREA NITROGEN 16 MG/DL (7-18); CALCIUM LEVEL 8.8 MG/DL (8.5-10.1); CARBON DIOXIDE LEVEL 25 MEQ/L (21-32); CHLORIDE LEVEL 101 MEQ/L (98-107); CREATININE FOR GFR 0.69 MG/DL (0.55-1.02); GLOMERULAR FILTRATION RATE > 60.0 (>51); GLUCOSE, FASTING 134 MG/DL (70-105); MAGNESIUM LEVEL 2.6 MG/DL (1.8-2.4); POTASSIUM SERUM 3.6 MEQ/L (3.5-5.1); SODIUM LEVEL 135 MEQ/L (136-145)
[2016-12-05] MEDS: ADVAIR HFA 115/21MCG INHALER INH SCH ×2 (08:08→20:06)
[2016-12-05] MEDS: SENOKOT S TAB PO SCH ×2 (09:00→20:06)
[2016-12-05] MEDS: FLUTICASONE PROP 0.05% NASAL SPRAY 16 GM (FLONASE) SCH (09:18)
[2016-12-05] MEDS: ENOXAPARIN 40 MG/0.4 ML SYRINGE (J1650) SC SCH (09:18)
[2016-12-05] MEDS: FEXOFENADINE 60 MG TAB PO SCH (09:19)
[2016-12-05] MEDS: MULTIVITAMINS/MINERALS THERAP 1 TAB PO SCH (09:19)
[2016-12-05] MEDS: guaiFENesin ER 600 MG TAB PO SCH ×2 (09:19→21:52)
[2016-12-05] MEDS: PANTOPRAZOLE 20 MG TAB PO SCH (09:19)
--- NOTE | 2016-12-05 10:42 | IPNPDOC ---
Subjective Date Seen The patient was seen on 12/05/16. Subjective Chief Complaint/HPI The patient is a 56-year-old female admitted with a reason for visit of Asthma Exacerabtion. Events since last encounter breathing Less tight. Raising sputum Constitutional: Denies: Chills, Fever Pulmonary: Reports: Dyspnea (improving), Cough Cardiovascular: Denies: Chest Pain, Palpitations Gastrointestinal: Denies: Nausea, Vomiting, Abdominal Pain, Diarrhea, Constipation Objective Physical Examination General Exam: Positive: Alert, Cooperative, Mild Distress (sitting up in chair. Mild dyspnea with talking) Neck Exam: Positive: Supple, Negative: JVD, thyromegaly, Lymphadenopathy Chest Exam: Positive: Wheezing, Other (Good a/e. Few scattered wheezes and few rhonchi) Heart Exam: Positive: Rate Normal, Regular Rhythm, Normal S1, Normal S2, Negative: Gallops, Murmurs, Rubs Abdomen Exam: Positive: Normal bowel sounds, Soft, Negative: Tenderness, Hepatospenomegaly, Mass Extremity Exam: Negative: Clubbing, Cyanosis, Edema, Tenderness Assessment /Plan Problems (1) Asthma exacerbation Status: Acute Response to Treatment: Improving Problem Specific Plan: Consult Specialist (Will ask Dr. Pearl to see her.), Repeat Labs Problem Text: 12/05/: nebulized duoneb added. better air movement compared to yesterday. Improving Wean oxygen as able Decrease steroids slightly B/C x 1/2 grew gram + cocci - Continue Levaquin continue nebs (2) Vocal cord dysfunction Status: Chronic Response to Treatment: Stable (3) Allergy to dust Status: Chronic Problem Specific Plan: Consult Specialist (4) Allergy to mold Status: Chronic Problem Specific Plan: Consult Specialist Plan/VTE VTE Prophylaxis Ordered?: Yes (lovenox) Plan Activity: Continue Current VS, I&O, 24H, Fishbone Vital Signs/I&O Vital Signs Date Time Temp Pulse Resp B/P (MAP) Pulse Ox O2 Delivery O2 Flow Rate FiO2 12/05/16 06:00 97.7 85 18 106/67 (80) 94 Nasal Cannula 4.0 I&O- Last 24 Hours up to 6 AM 12/05/16 06:00 Intake Total 960 ml Output Total 2900 ml Balance -1940 ml Laboratory Data 24H LABS Laboratory Tests 2 12/04/16 15:13: Immunoglobulin E 1930.0H 12/05/16 06:36: Anion Gap 9, Glomerular Filtration Rate > 60.0, Blood Urea Nitrogen 16#, Creatinine 0.69, Sodium Level 135L, Potassium Level 3.6, Chloride Level 101, Carbon Dioxide Level 25, Calcium Level 8.8, Magnesium Level 2.6H, C-Reactive Protein, Quantitative 0.89H CBC/BMP Laboratory Tests 12/05/16 06:36 Calcium Level 8.8 12/05/16 06:37 Red Blood Count 4.60, Mean Corpuscular Volume 92.6, Mean Corpuscular Hemoglobin 30.8, Mean Corpuscular Hemoglobin Concent 33.2, Red Cell Distribution Width 13.1 Microbiology Microbiology 12/04/16 Blood Culture - Preliminary, Resulted No growth after 24 hours . All specim... 12/04/16 Blood Culture - Preliminary, Resulted 12/04/16 Gram Stain - Final, Resulted 12/04/16 Sputum Culture, Resulted Pending 12/04/16 MRSA Screen - Final, Complete 12/04/16 Respiratory Virus Panel (PCR) ([facility]) - Final, Complete Attending Note Attending Note Improved air flow. Cough productive of globules of viscous sputum. Duoneorquidea added. Dr. Pearl has seen her. Additional tests requested. ERIK SHETH PA-C Dec 05, 2016 10:42 Ady Platt MD Dec 05, 2016 13:35
[2016-12-05] MEDS: ALBUTEROL SULFATE 2.5 MG/0.5 ML INH NEB SOLN NEB SCH ×4 (12:00→23:17)
--- NOTE | 2016-12-05 13:45 | CR ---
DATE OF CONSULTATION: 12/05/2016 This is in addition to the consultation that has already been dictated by the resident. Lacie was seen today, who is a 56-year-old female, in summary with history of allergic asthma with significant eosinophilia at 29% of her differential, along with significantly elevated IgE levels. Overall, I feel this is most likely an acute flare of allergic asthma. However, given the severity of her eosinophilia, alternative diagnosis should be considered, including Churg-Dagoberto vasculitis. Because of this possibility, I have discontinued her Singulair. I have ordered antineutrophil cytoplasmic antibody (ANCA), a rheumatoid factor, and myeloperoxidase antibodies to check for this. I reviewed the chest CT personally from August. I do not feel there is a need to repeat one. There is no evidence of significant disease on the chest CTs to suggest a vasculitic process in the lungs. I ordered a urinalysis to ensure no evidence of renal dysfunction or proteinuria. I agree with her current course of Solu-Medrol. As far as her antibiotic therapy, she is on steroids and has a history of Achilles tendon rupture around the time of prior Levaquin use. I would, therefore, be cautious with this antibiotic and potentially consider an alternative on oral antibiotic. I have advised her to stay away from aspirin and ibuprofen. We discussed environmental precautions. She does not have a nebulizer machine at home. I have recommended that she be provided one and that her nebulization could be up to four times an hour, as this seems to be most helpful in her mucus production. I have given her Cepacol, as this helps with her posterior pharynx symptoms. I do not believe she has idiopathic hypereosinophilia or tumor-producing eosinophils, as likely this would not cause an elevated IgE level. I did discuss her case with her dipper fish, who had performed prior testing. Allergic bronchopulmonary aspergillosis (ABPA) could be considered, although she does not have a significant amount of bronchiectasis, although there is minimal bronchiectasis on chest CT. Aspergillus skin testing was performed and was not of significant concern. Dust mites and mold was more significantly positive on skin testing. Therefore, I do not believe this is ABPA. It does not appear that she has signs, symptoms of parasitic infection. However, this could cause hypereosinophilia. She is on well water. No one else is sick who drinks the same water. She plans on having her water tested. She was also previously on ivermectin. After discussing her treatment plan and workup with her dipper fish, she may be a candidate for outpatient treatment with Nucala. We will follow her and continue this transition as an outpatient. My overall suspicion is this is severe allergic asthma.
[2016-12-05 14:00] VITALS: BP 111/62
[2016-12-05] MEDS: methylPREDNISolone INJ 40 MG/1 ML VIAL (J2920) IV SCH ×2 (14:17→21:51)
[2016-12-05 17:00] VITALS: BP 160/88
[2016-12-05 20:00] VITALS: BP 146/79
[2016-12-05] MEDS ORDERED: CALCIUM CARBONATE 500 MG CHEW U/D PO PRN ×2 (21:00)
[2016-12-05] MEDS: CEPACOL LOZENGE PO PRN (21:51)
[2016-12-05] MEDS ORDERED: LevoFLOXacin IV 750 MG in APPROPRIATE DILUENT 1 EA IV SCH (22:00)
[2016-12-06] VITALS: BP 137/78
[2016-12-06] MEDS: ALBUTEROL SULFATE 2.5 MG/0.5 ML INH NEB SOLN NEB SCH ×6 (04:00→23:25)
[2016-12-06] MEDS: PANTOPRAZOLE 20 MG TAB PO SCH (06:28)
[2016-12-06] MEDS: SLF 3 ML SYR IV SCH ×3 (06:28→21:38)
[2016-12-06] MEDS: methylPREDNISolone INJ 40 MG/1 ML VIAL (J2920) IV SCH (06:29)
[2016-12-06 06:39] LABS: BASO % 0.3 % (0.0-1.0); EOS # 0.2 K/mm3 (0.0-0.50); LARGE UNSTAINED CELL # 0.2 K/mm3 (0.0-0.4); LARGE UNSTAINED CELL % 0.9 % (0.0-4.0); LYMPH # 2.5 K/mm3 (1.5-4.5); LYMPH % 13.5 % (24.0-44.0); MEAN CORPUSCULAR HGB CONC 32.9 g/dl (32.0-36.5); MONO # 0.7 K/mm3 (0.0-0.8); MONO % 4.3 % (0.0-5.0); NEUTROPHILS # 13.6 K/mm3 (1.8-7.7); PLATELET COUNT, AUTOMATED 221 k/mm3 (150-450); RED CELL DISTRIBUTION WIDTH 13.2 % (11.5-14.5)
[2016-12-06] MEDS: ADVAIR HFA 115/21MCG INHALER INH SCH ×2 (07:19→20:15)
[2016-12-06 08:00] VITALS: BP 162/74
[2016-12-06] MEDS: SENOKOT S TAB PO SCH ×2 (09:00→21:38)
[2016-12-06] MEDS: FEXOFENADINE 60 MG TAB PO SCH (09:22)
[2016-12-06] MEDS: MULTIVITAMINS/MINERALS THERAP 1 TAB PO SCH (09:23)
[2016-12-06] MEDS: guaiFENesin ER 600 MG TAB PO SCH ×2 (09:23→21:38)
[2016-12-06] MEDS: ENOXAPARIN 40 MG/0.4 ML SYRINGE (J1650) SC SCH (09:24)
[2016-12-06] MEDS: FLUTICASONE PROP 0.05% NASAL SPRAY 16 GM (FLONASE) SCH (09:24)
[2016-12-06 09:25] LABS: ANION GAP 8 MEQ/L (8-16); BLOOD UREA NITROGEN 17 MG/DL (7-18); CALCIUM LEVEL 8.5 MG/DL (8.5-10.1); CARBON DIOXIDE LEVEL 26 MEQ/L (21-32); CHLORIDE LEVEL 102 MEQ/L (98-107); CREATININE FOR GFR 0.65 MG/DL (0.55-1.02); GLOMERULAR FILTRATION RATE > 60.0 (>51); GLUCOSE, FASTING 115 MG/DL (70-105); SODIUM LEVEL 136 MEQ/L (136-145)
[2016-12-06] MEDS: CEPACOL LOZENGE PO PRN (09:25)
--- NOTE | 2016-12-06 09:27 | IPNPDOC ---
Subjective Date Seen The patient was seen on 12/06/16. Subjective Chief Complaint/HPI The patient is a 56-year-old female admitted with a reason for visit of Asthma Exacerabtion. Events since last encounter Less SOB. Cough improved Constitutional: Denies: Chills, Fever Pulmonary: Reports: Dyspnea (improving), Cough Cardiovascular: Denies: Chest Pain, Palpitations Gastrointestinal: Denies: Nausea, Vomiting, Abdominal Pain, Diarrhea Objective Physical Examination General Exam: Positive: Alert, Cooperative, Mild Distress (sitting up in chair. Mild dyspnea with talking) Neck Exam: Positive: Supple, Negative: JVD, thyromegaly, Lymphadenopathy Chest Exam: Positive: Clear to auscultation, Normal air movement Heart Exam: Positive: Rate Normal, Regular Rhythm, Normal S1, Normal S2, Negative: Gallops, Murmurs, Rubs Abdomen Exam: Positive: Normal bowel sounds, Soft, Negative: Tenderness, Hepatospenomegaly, Mass Extremity Exam: Negative: Clubbing, Cyanosis, Edema, Tenderness Assessment /Plan Problems (1) Asthma exacerbation Status: Acute Response to Treatment: Improving Problem Specific Plan: Consult Specialist (Will ask Dr. Pearl to see her.), Repeat Labs Problem Text: 12/06 - clinically improving. Oxygen weaned to RA - sats 91% Change to po prednisone and po abx consider change to Ceftin rather that Levaquin (2) Eosinophilia Status: Acute Problem Text: Per Dr. Pearl - likely related to allergic Asthma. I will repeat today Multiple additional tests ordered due to elevated Ige. Singulair discontinued as well. (3) Elevated IgE level Status: Acute Problem Text: see above (4) Vocal cord dysfunction Status: Chronic Response to Treatment: Stable (5) Allergy to dust Status: Chronic Problem Specific Plan: Consult Specialist (6) Allergy to mold Status: Chronic Problem Specific Plan: Consult Specialist Plan/VTE VTE Prophylaxis Ordered?: Yes (lovenox) Plan Activity: Continue Current VS, I&O, 24H, Fishbone Vital Signs/I&O Vital Signs Date Time Temp Pulse Resp B/P (MAP) Pulse Ox O2 Delivery O2 Flow Rate FiO2 12/06/16 00:00 98.3 102 20 137/78 (97) 91 Room Air 12/05/16 08:00 4.0 I&O- Last 24 Hours up to 6 AM 12/06/16 06:00 Intake Total 840 ml Output Total 2650 ml Balance -1810 ml Laboratory Data 24H LABS Laboratory Tests 2 12/05/16 11:10: Rheumatoid Factor < 10.0 12/05/16 13:44: Urine Appearance HAZY, Urine Color YELLOW, Urine pH 6.0, Urine Specific [place] 1.015, Urine Protein NEGATIVE, Urine Glucose (UA) NEGATIVE, Urine Ketones NEGATIVE, Urine Urobilinogen 0.2, Urine Bilirubin NEGATIVE, Urine Leukocyte Esterase NEGATIVE, Urine Blood NEGATIVE, Urine Nitrite NEGATIVE, Urine WBC (Auto ) 1, Urine RBC (Auto) 1, Urine Hyaline Casts (Auto) 0, Urine Bacteria (Auto) NEGATIVE, Urine Squamous Epithelial Cells 0, Urine Mucus (Auto) SMALL, Urine Sperm (Auto) 12/06/16 06:23: 12/06/16 06:26: White Blood Count 17.0H, Red Blood Count 4.43, Hemoglobin 13.3, Hematocrit 40.4 , Mean Corpuscular Volume 91.0, Mean Corpuscular Hemoglobin 30.0, Mean Corpuscular Hemoglobin Concent 32.9, Red Cell Distribution Width 13.2, Platelet Count 221, Neutrophils (%) (Auto) 80.0H, Lymphocytes (%) (Auto) 13.5L, Monocytes (%) (Auto) 4.3, Eosinophils (%) (Auto) 1.0, Basophils (%) (Auto) 0.3, Neutrophils # (Auto) 13.6H, Lymphocytes # (Auto) 2.5, Monocytes # (Auto) 0.7, Eosinophils # (Auto) 0.2, Basophils # (Auto) 0.0, Large Unclassified Cells % 0.9 , Large Unclassified Cells # 0.2 CBC/BMP Laboratory Tests 12/06/16 06:26 Red Blood Count 4.43, Mean Corpuscular Volume 91.0, Mean Corpuscular Hemoglobin 30.0, Mean Corpuscular Hemoglobin Concent 32.9, Red Cell Distribution Width 13.2 , Neutrophils (%) (Auto) 80.0 H, Lymphocytes (%) (Auto) 13.5 L, Monocytes (%) ( Auto) 4.3, Eosinophils (%) (Auto) 1.0, Basophils (%) (Auto) 0.3, Neutrophils # ( Auto) 13.6 H, Lymphocytes # (Auto) 2.5, Monocytes # (Auto) 0.7, Eosinophils # ( Auto) 0.2, Basophils # (Auto) 0.0 Microbiology Microbiology 12/04/16 Blood Culture - Preliminary, Resulted No Growth after 48 hours. All Specime... 12/04/16 Blood Culture - Preliminary, Resulted 12/04/16 Gram Stain - Final, Complete 12/04/16 Sputum Culture - Final, Complete 12/04/16 MRSA Screen - Final, Complete 12/04/16 Respiratory Virus Panel (PCR) ([facility]) - Final, Complete Attending Note Attending Note patient with asthma exacerbation, improving. still has localizing wheezes/ rhonchi Left Upper lung hood. Overall improved compared to yesterday and substantially improved since admission. ERIK SHETH PA-C Dec 06, 2016 09:27 Ady Platt MD Dec 06, 2016 15:05
[2016-12-06] MEDS: CEFUROXIME 500 MG TAB PO SCH ×2 (10:29→21:37)
--- NOTE | 2016-12-06 13:41 | CR ---
DATE OF CONSULTATION: 12/05/2016 cc: short of breath Ms. Lacie Yeung is a 56-year-old female. Pulmonology has been consulted regarding her shortness of breath and cough. Patient states that has been experiencing these symptoms for about a year, most recently worsened until Saturday. Patient states she has tried Mucinex, deep breathing exercises, cough syrup, Robitussin, NyQuil and cough drops all of which slightly helped but made no significant improvement. Past medical history positive for gastroesophageal reflux disease (GERD), asthma, left ankle Achilles tear, vocal cord dysfunction. States that [place] and has numerous pets and farm animals including dogs, goats, cows and chickens. Patient states that she has had sinus issues for about 5 years and also sees an helicopter technician Dr. Rush in [place] and Dr. Miller in [place]. Ms. Yeung states that she has been tested for allergies and was positive allergic to mold and dust mites. Also sees Dr. Dickey for her sinus issues in April. She gets Xolair shots every 2 weeks and allergy shots weekly. Most recently was hospitalized with same issues about a month ago. Denies sick contacts and travel history. Shortness of breath and wheezing are associated with feelings of lightheadedness and dizziness. REVIEW OF SYSTEMS: Constitutional: Denies fever, chills, night sweats, weight changes HEENT: Admits to watery eyes and eye and sinus pressure. Denies auditory changes , rhinorrhea, sore throat. Pulmonary: Admits cough, wheezing, and feeling short of breath. Denies hemoptysis. Cardiovascular: Denies chest pain, palpitations, and claudication. GI: Denies nausea, vomiting, diarrhea, constipation. : Denies hematuria, dysuria, urgency. Neurovascular: Denies paresthesia, loss of motor or sensory function. Endocrine: Denies excessive fatigue, feeling extra hot or cold. Integument: Denies new skin rashes, moles. Heme/Onc: Denies easy bleeding and bruising. Denies Psych: Denies hallucinations. Denies homicidal and suicidal thoughts. PAST MEDICAL HISTORY: 1. Asthma. 2. Environmental and seasonal allergies. 3. Vocal cord dysfunction. 4. Gastroesophageal reflux disease (GERD). 5. History of left Achilles tendon tear. IMMUNIZATIONS: Patient states are up to date. MEDICATIONS: - Protonix - multivitamin - Advair - Flonase - albuterol - fexofenadine - montelukast - levofloxacin - Mucinex ALLERGIES: Denies drug allergies. Positive for environmental and seasonal allergies. Allergic to dust mites and mold. SURGERY: Hysterectomy. Bone spur of the right foot. Dilation and curettage (D C). section. Left sinus surgery. Left root canal. FAMILY HISTORY: Mother alive with history of uterine cancer and allergies. Father passed at age 48 of myocardial infarction ([place]). Son has allergies. Grandmother of unknown female cancer. Paternal grandmother with myocardial infarction. Maternal grandfather passed of colon cancer and had stomach cancer and diabetes. SOCIAL HISTORY: Lives on a farm with and son and farm animals. Denies ever smoking. Denies drinking, and elicit drug use. VITAL SIGNS: Temperature 97.7, heart rate 85, respiratory rate 18, blood pressure 106/67, oxygen saturation 94% on 4 liters nasal cannula. Input and output 240/1600, with overall balance of negative 1360. PHYSICAL EXAMINATION: General: Alert and oriented times three, cooperative, emotional about losing farm animals. HEENT: Moist mucous membranes, normocephalic, atraumatic. Nasal septum midline. No tracheal deviation. Tongue midline. Conjunctiva normal. No thyromegaly, jugular venous distention (JVD) or lymphadenopathy. Cardiovascular: Regular rate and rhythm. No appreciable murmurs, clicks or gallops. No peripheral edema. +2 dorsalis pedis pulses. No cyanosis or clubbing. Respiratory: Upper rhonchi that cleared upon coughing with audible wheezing bilaterally in lower lobes. Abdominal exam: Positive bowel sounds, soft, nontender, nondistended. Skin exam: No visible rashes. Facial redness apparent. LABS: White count 22.8, hemoglobin and hematocrit 14.2, 42.6, platelets 241. Sodium 135, potassium 3.6. CO2 101, carbon dioxide 25, BUN and creatinine 16 and 0.69, glucose 134. IGE level of 1130. Sputum gram stain: few epithelial cells, many white blood cells, moderate gram positive cocci in pairs, chains, clusters, few gram and positive rods. Sputum culture is pending. Methicillin-resistant staphylococcus aureus (MRSA) negative. Nasopharynx: Viral panel negative. Blood culture: no growth at 24 hours and other blood culture showed gram positive cocci in clusters. Chest x-ray showed diffuse chronic stable interstitial changes, subtle superimposed scattered atelectasis cannot be excluded. Previous CT scan of 08/15/2016 was reviewed and showed no bronchiectasis. ASSESSMENT AND PLAN: 56-year-old female most likely with an 1. acute asthma exacerbation secondary to allergen exposure. She is allergic to mold and dust mites with history of vocal cord dysfunction. Continue nebulizer treatments and high dose steroids. 2. Hypereosinophilia Rule out Churg-Dagoberto. Ordered ANCA, MPO, rheumatoid factor. Will recheck CBC with differential. Unlikely parasitic infection, patient had aspergillus testing in the past that was unremarkable. Most likely related to acute asthma. 3. Leukocytosis Most likely due to allergic asthma. I do not think it is bacterial due to lack of fever and negative chest x-ray. Most probably due to acute exposure to hay. Continue nebulizer treatments, Cepacol drops, and acapella device. Continue nebulizer treatments upon discharge to home as well. Informed patient to screen the water for parasites. Patient states a company will be checking her house for mold. Recommended air filter and purifiers as well. 4. Gastroesophageal reflux disease (GERD) Continue Protonix. My preceptor for this patient encounter was Dr. Pearl. The preceptor was physically present in the room during the encounter and was fully available. As needed, all aspects of the patient interview, examination, medical decision making process, and medical care plan development were reviewed and approved by the preceptor. The preceptor is aware and concurs with the plan as stated in the body of this note and will attest to such by her cosignature. I, Buzz Pearl, Agree witht he above. I conducted an independent history and physical. The patient has significant hypereosinophilia, I iscussed her case with her helicopter technician who has already performed a great deal of testing including screening for immunodeficiency. It appears this is a severe allergic reaction with exacerbation of asthma. Due to the severity of the eosinophilia we will evaluate for potential Churg-Dagoberto and therefore will d/c Singulair until this work up is complete. She should have nebulized medication at home as she feels this has better delivery. [facility]
[2016-12-06 16:00] VITALS: BP 162/72
[2016-12-06 20:00] VITALS: BP 145/87
[2016-12-06] MEDS: predniSONE 20 MG TAB PO SCH (21:38)
[2016-12-07] VITALS: BP 133/80
[2016-12-07] MEDS: ALBUTEROL SULFATE 2.5 MG/0.5 ML INH NEB SOLN NEB SCH ×3 (04:00→10:50)
[2016-12-07] MEDS: SLF 3 ML SYR IV SCH (06:00)
[2016-12-07] MEDS: PANTOPRAZOLE 20 MG TAB PO SCH (06:14)
[2016-12-07] MEDS: ADVAIR HFA 115/21MCG INHALER INH SCH (07:28)
[2016-12-07 08:00] VITALS: BP 142/76
[2016-12-07] MEDS: predniSONE 20 MG TAB PO SCH (08:31)
[2016-12-07] MEDS: MULTIVITAMINS/MINERALS THERAP 1 TAB PO SCH (08:31)
[2016-12-07] MEDS: CEFUROXIME 500 MG TAB PO SCH (08:31)
[2016-12-07] MEDS: FEXOFENADINE 60 MG TAB PO SCH (08:32)
[2016-12-07] MEDS: ENOXAPARIN 40 MG/0.4 ML SYRINGE (J1650) SC SCH (08:33)
[2016-12-07] MEDS: guaiFENesin ER 600 MG TAB PO SCH (08:33)
[2016-12-07] MEDS: SENOKOT S TAB PO SCH (08:33)
[2016-12-07] MEDS: FLUTICASONE PROP 0.05% NASAL SPRAY 16 GM (FLONASE) SCH (08:34)
[2016-12-07] MEDS ORDERED: CEFT500T3 PO (08:43)
[2016-12-07] MEDS ORDERED: PRED20TA PO (08:43)
[2016-12-07] MEDS ORDERED: ALB2.5NEB NEB (08:46)
[2016-12-08 00:08] LABS: MYELOPEROXIDASE ANTIBODY <9.0 U/mL (0.0-9.0)
--- NOTE | 2016-12-08 14:35 | DSES ---
DATE OF ADMISSION: 12/04/2016 DATE OF DISCHARGE: 12/07/2016 BRIEF HISTORY AND PHYSICAL: The patient is a 56-year-old patient of Dr. Platt with a history of allergy-induced asthma and vocal cord dysfunction, as well as gastroesophageal reflux disease with Rosario's esophagus, who presented to Dr. Miller's office with a cough and congestion and was put on doxycycline. She developed worsening cough with diarrhea, was referred to the urgent care. They changed her antibiotic to Levaquin. However, the patient's breathing did not improve, and she presented with increased shortness of breath and increased wheezing with yellow-brown sputum and tightness in her chest with coughing. PAST MEDICAL HISTORY: Significant for the above mentioned allergy-induced asthma, vocal cord dysfunction, gastroesophageal reflux disease, past history of hepatitis C - successfully treated, left Achilles tendon tear. PERTINENT LABS ON ADMISSION: White count 15, hemoglobin 14, platelets 198,000 with 29% eosinophils in her differential. Sodium 140, potassium 3.6, BUN 11, creatinine 0.6, glucose 141, CRP 1.43. Chest x-ray showed chronic stable changes. Cannot exclude atelectasis. HOSPITAL COURSE: The patient was admitted for asthma exacerbation, felt most likely to be related to an allergen exposure, particularly considering the significantly high eosinophils in her differential. She was placed on Levaquin and Solu-Medrol as well as nebulized bronchodilators. She had slow, gradual improvement of her respiratory symptoms. She continues to cough and raise sputum, but her wheezing has resolved and she was successfully weaned to room air with oxygen saturations remaining around 91-94% on room air. Her respiratory virus panel was negative. Her sputum culture had normal regis. She had one out of two positive blood cultures that grew Staphylococcus hominis, and this is felt to be a skin contaminant. She was switched to Ceftin because of her previous history of Achilles tendon tear, and the concern that the Levaquin can cause spontaneous tendon ruptures. She will be sent home on Ceftin. Dr. Pearl saw her in consultation to look in to the eosinophilia as well as significantly elevated IgE level of 1930. Some adjustments were made in her medications, including the discontinuation of her Singulair and further blood work was obtained, most of which is still pending, including atypical ANCA testing and anti-myeloperoxidase as well as Aspergillus. She will followup with Dr. Pearl as an outpatient. DISPOSITION: She is stable for discharge home. MEDICATIONS: - albuterol nebulizer 2.5 mg every 6 hours - Ceftin 500 mg twice a day for 7 more days - prednisone taper 20 mg twice a day for 4 days, then 20 mg daily for 3 days, then 10 mg daily for 3 days - She has albuterol ProAir as needed. - [place] 180 mg daily - Flonase 50 mcg daily - ibuprofen 400 mg every 6 hours as needed - Mucinex one tablet daily - multivitamin daily - pantoprazole 20 mg daily - Pataday 0.2% solution both eyes daily - Advair Diskus 250/50 one puff twice a day Her Singulair was discontinued. DISCHARGE DIAGNOSES: 1. Acute asthma exacerbation secondary allergen exposure. 2. Eosinophilia. 3. Elevated IgE. 4. Gastroesophageal reflux disease. ANCA MPO and Aspergillus tests are still pending at the time of discharge. Her eosinophil level returned to normal with prednisone. Copy To: Dr. Pearl
[2016-12-08 15:11] LABS: M003-IGE ASPERGILLUS fumigatus <0.10 kU/L (Class 0)
== END 2016-12-07 11:05 | disposition home or self-care (01) | DRG 141 ==
LOC: M ED 20:39 → M ED INP 12-04 02:01 → M PCU 12-04 03:16 → M MS4PR 12-04 21:05 → M PED 12-05 16:39
PROVIDERS: ADMIT Hospitalist; ATTEND Family Medicine
DX: J45.901 Unspecified asthma with (acute) exacerbation (principal); M30.1 Polyarteritis with lung involvement [Churg-Strauss]; D72.1 Eosinophilia; J38.3 Other diseases of vocal cords; Z79.899 Other long term (current) drug therapy; K21.9 Gastro-esophageal reflux disease without esophagitis; R76.8 Other specified abnormal immunological findings in serum; Z88.1 Allergy status to other antibiotic agents; J30.2 Other seasonal allergic rhinitis; Z90.710 Acquired absence of both cervix and uterus

== ENCOUNTER → 2018-06-27 | Outpatient (CLI) | payer BC, OTHER ==
[~2018-06-27] MED LIST changes: +ALB2.5NEB NEB; +CEFT500T3 PO; +FLON1SPR; +IBUP-1114 PO; +LEVO500T3 PO; +OLOP0.1D OU; +PANT20TA2 PO; -PANT40TA2; +PANT40TA3; +PATA0.2S OU; +PRED20TA PO; +VITMTA PO
--- NOTE | 2018-06-27 12:47 | REPMRS ---
Patient History The patient states she had a clinical breast exam in June 2018. Family history of ovarian cancer at age 50 or over in mother, ovarian cancer at age 50 or over in maternal grandmother. 3D TOMOSYNTHESIS WAS PERFORMED. Indicated problem(s): left breast other indicated problem, tenderness for 3 weeks. Left breast tenderness for 3 weeks Digital Mammo Diagnostic Bilateral: June 27, 2018 - Exam #: [id number] Bilateral CC and MLO view(s) were taken. Technologist: Yaneth Esquivel, Technologist Prior study comparison: October 19, 2015, digital woman screen mammo, performed at [facility]. October 14, 2014, digital woman screen mammo, performed at [facility]. FINDINGS: There are scattered fibroglandular densities. There has been no change in the appearance of the mammogram from the prior studies. There is a mild amount of residual fibroglandular tissue which is fairly symmetric. There is no interval development of dominant mass, architectural distortion, or clustered microcalcification suggestive of malignancy. Assessment: BI-RADS/ACR category 1 mammogram. Negative Mammogram. Recommendation Routine screening mammogram in 1 year (for women over age 40). This mammogram was interpreted with the aid of an FDA-approved computer-aided dectection system. Electronically Signed By: Porter Villegas MD 06/27/18 0221
== END ==
LOC: M RAD 12:04
PROVIDERS: ATTEND Family Medicine
DX: N64.4 Mastodynia (principal); Z80.42 Family history of malignant neoplasm of prostate
CPT/HCPCS: 77066; G0279

== ENCOUNTER → 2019-07-02 | Outpatient (REF) | payer OTHER ==
[~2019-07-02] MED LIST changes: -MONT10TA2 PO; +MONT10TA4 PO
[2019-07-07 00:06] LABS: THYROID STIMULATING IMMUNOGLOB 31.6 IU/L (0.00-0.55); TSH RECEPTOR ASSAY 37.3 IU/L (0.00-1.75)
== END ==
LOC: M LABDRAW1 16:57
PROVIDERS: ATTEND Internal Medicine Endocrinology, Diabetes & Metabolism
DX: E05.00 Thyrotoxicosis with diffuse goiter without thyrotoxic crisis or storm (principal)

== ENCOUNTER → 2019-07-07 | Outpatient (CLI) | payer BC, OTHER ==
--- NOTE | 2019-07-08 15:13 | REP ---
Radionuclide thyroid scan and uptake: History: Thyrotoxicosis. No comparison imaging. Technique: 305 Microcuries of I 123 sodium iodine is ingested. 24 hour uptake and functional images are acquired. Scintigraphic findings: Functional images demonstrate homogeneous uptake in normal-sized thyroid lobes bilaterally. No cold or warm lesion is seen. The radioactive uptake value is elevated at 40.07% (25-35%). Impression: Elevated iodine uptake, 40.07%. Homogeneous function. Electronically Signed by Dominik Yuan MD 07/08/2019 07:37 P
== END ==
LOC: M RAD 09:12
PROVIDERS: ATTEND Internal Medicine Endocrinology, Diabetes & Metabolism
DX: E05.00 Thyrotoxicosis with diffuse goiter without thyrotoxic crisis or storm (principal)
CPT/HCPCS: 78012; A9516

== ENCOUNTER → 2019-08-14 | Outpatient (CLI) | payer BC, OTHER ==
[2019-08-14 11:06] LABS: FREE T3 6.8 PG/ML (2.2-4.0); FREE T4 2.08 NG/DL (0.76-1.46); THYROID STIMULATING HORMONE < 0.005 uIU/ML (0.358-3.740)
[2019-08-14 11:07] LABS: THYROID PEROXIDASE ANTIBODY < 28.0 U/ML (<60.0)
== END ==
LOC: M LAB 10:02
PROVIDERS: ATTEND Internal Medicine
DX: E05.90 Thyrotoxicosis, unspecified without thyrotoxic crisis or storm (principal); E05.00 Thyrotoxicosis with diffuse goiter without thyrotoxic crisis or storm

== ENCOUNTER → 2019-10-27 | Outpatient (CLI) | payer BC, OTHER ==
[~2019-10-27] MED LIST changes: +MONT10TA10 PO; -MONT10TA4 PO; +OLOP2.5D3; +OLOP2.5D3 OU; -PANT20TA2 PO; +PANT20TA6 PO; +PANT40TA29; -PANT40TA3; -PATA0.2S; -PATA0.2S OU
[2019-10-27 13:50] LABS: BASO # 0.1 10^3/uL (0.0-0.2); BASO % 0.7 % (0.0-1.0); EOS # 0.3 10^3/uL (0.0-0.5); EOS % 3.8 % (0.0-3.0); HEMATOCRIT 37.9 % (36.0-47.0); HEMOGLOBIN 12.3 g/dl (12.0-15.5); LYMPH # 3.3 10^3/uL (1.5-5.0); LYMPH % 36.8 % (24.0-44.0); MEAN CORPUSCULAR HEMOGLOBIN 29.1 pg (27.0-33.0); MEAN CORPUSCULAR HGB CONC 32.5 g/dl (32.0-36.5); MEAN CORPUSCULAR VOLUME 89.8 fl (80.0-96.0); MONO # 0.6 10^3/uL (0.0-0.8); MONO % 6.8 % (0.0-5.0); NEUTROPHILS # 4.6 10^3/uL (1.5-8.5); NEUTROPHILS % 51.6 % (36.0-66.0); PLATELET COUNT, AUTOMATED 244 10^3/uL (150-450); RED BLOOD COUNT 4.22 10^6/uL (4.00-5.40)
[2019-10-27 14:14] LABS: ALBUMIN 3.8 GM/DL (3.2-5.2); ALT/SGPT 32 U/L (12-78); BILIRUBIN,TOTAL 0.4 MG/DL (0.2-1.0); BLOOD UREA NITROGEN 18 MG/DL (7-18); CALCIUM LEVEL 8.7 MG/DL (8.8-10.2); CARBON DIOXIDE LEVEL 26 MEQ/L (21-32); CHLORIDE LEVEL 108 MEQ/L (98-107); CREATININE FOR GFR 0.61 MG/DL (0.55-1.30); FREE T3 3.7 PG/ML (2.2-4.0); FREE T4 1.28 NG/DL (0.76-1.46); GLOMERULAR FILTRATION RATE > 60.0 (>45); GLUCOSE, FASTING 88 MG/DL (70-100); SODIUM LEVEL 142 MEQ/L (136-145); THYROID STIMULATING HORMONE < 0.005 uIU/ML (0.358-3.740); TOTAL PROTEIN 6.6 GM/DL (6.4-8.2)
== END ==
LOC: M LAB 12:32
PROVIDERS: ATTEND Internal Medicine
DX: D05.90 Unspecified type of carcinoma in situ of unspecified breast (principal)

== ENCOUNTER 2020-12-03 15:38 | Emergency (ER) | payer BC, OTHER ==
[~2020-12-03] VITALS: Ht 157.5 cm; Wt 90.9 kg
[2020-12-03] MEDS ORDERED: METH10TA (16:07)
[2020-12-03] MEDS ORDERED: ADV100INH (16:07)
[2020-12-03] MEDS ORDERED: METO50TA7 (16:07)
[2020-12-03] MEDS ORDERED: ACETAMINOPHEN 325 MG TAB PO ONE (16:15)
--- NOTE | 2020-12-03 16:15 | REP ---
INDICATION: kicked in face by cow/swelling. COMPARISON: Comparison maxillofacial CT study is from September 07, 2016.. TECHNIQUE: Helical scanning is acquired and 2 mm axial images re-formatted. Coronal MPR images are generated and reviewed. FINDINGS: There is the left male are soft tissue swelling and a small subcutaneous hematoma is seen. Orbital margins are intact. There is moderate mucosal thickening affecting the maxillary sinuses bilaterally. The patient is status post bilateral uncinectomy. The paranasal sinuses are otherwise clear. Zygomatic arches are intact. No mandibular fracture is appreciated. The inferior maxillary spine and nasal bone are intact. IMPRESSION: Left male are soft tissue swelling and a subcutaneous hematoma. Chronic sinusitis changes affecting the maxillary sinuses with postoperative changes. No maxillofacial fracture seen. <Electronically signed by Juwan Yuan > 12/03/20 0003
--- NOTE | 2020-12-03 16:16 | REP ---
INDICATION: kicked in face by cow/swelling. COMPARISON: None. TECHNIQUE: Helical scanning is acquired. 5 mm axial images were reformatted. Coronal MPR images were generated. FINDINGS: Digital preliminary cafeteria monitor views are unremarkable. There is moderate mucosal thickening affecting the maxillary sinuses bilaterally. No skull fracture is seen. No significant scalp hematoma is appreciated. On soft tissue window settings, the lateral, 3rd, and 4th ventricles are normal in size and position. Villegas-white differentiation pattern is normal above and below the tentorium. There is no evidence of intracranial hemorrhage. No mass, extra-axial fluid collection, or midline shift is seen. IMPRESSION: Bilateral maxillary sinus mucosal thickening noted. Otherwise negative noncontrast head CT. No skull fracture or intracranial injury seen.. <Electronically signed by Juwan Yuan > 12/03/20 [id number]
--- NOTE | 2020-12-03 16:18 | REP ---
INDICATION: kicked in face by cow/swelling. COMPARISON: Comparison neck CT study September 14, 2016.. TECHNIQUE: Helical scanning is acquired and overlapping 2 mm high resolution axial images were generated and reviewed at bone and soft tissue window settings. Coronal and sagittal multiplanar re-formations images are generated. FINDINGS: There is no evidence of cervical spine element fracture. No skull base fracture is seen. Cervical vertebral body heights are preserved. Alignment is normal. Facet joints are normally aligned bilaterally at each cervical level on multiplanar re-formations images. There is no evidence of intraspinal or paraspinal hematoma. No extra vertebral abnormality is seen. There is some straightening of the normal cervical lordosis. Degenerative disc narrowing and discogenic spurring are present at C5-6 and to a lesser extent at C6-7. 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 Otherwise negative C-spine CT. No traumatic abnormality noted.. <Electronically signed by Juwan Yuan > 12/03/20 0046
[2020-12-03 17:21] VITALS: BP 136/87
== END 2020-12-03 17:22 | disposition home or self-care (01) ==
LOC: M ED 15:38
DX: S00.83XA Contusion of other part of head, initial encounter (principal); W55.22XA Struck by cow, initial encounter; Y92.018 Other place in single-family (private) house as the place of occurrence of the external cause; E05.00 Thyrotoxicosis with diffuse goiter without thyrotoxic crisis or storm; Z88.1 Allergy status to other antibiotic agents; Z79.899 Other long term (current) drug therapy

== ENCOUNTER 2020-12-08 08:38 | Outpatient (CLI) | payer BC, OTHER ==
[~2020-12-08] VITALS: Ht 157.5 cm; Wt 91.4 kg
[~2020-12-08 08:38] MED LIST changes: +ADV100INH; +METH10TA; +METO50TA7
[2020-12-08 09:03] VITALS: BP 167/86
[2020-12-08] MEDS ORDERED: TEPROTUMUMAB TRBW IV ONE (09:15)
[2020-12-08] MEDS ORDERED: NS IV ONE (09:15)
[2020-12-08 10:30] VITALS: BP 129/73
[2020-12-08 11:22] VITALS: BP 143/84
[2020-12-08 12:00] VITALS: BP 138/68
== END 2020-12-08 12:00 | disposition home or self-care (01) ==
LOC: M INFU 08:38
PROVIDERS: ATTEND Ophthalmology
DX: E05.00 Thyrotoxicosis with diffuse goiter without thyrotoxic crisis or storm (principal); Z88.1 Allergy status to other antibiotic agents
CPT/HCPCS: 96365; J3241

== ENCOUNTER 2020-12-29 09:33 | Outpatient (CLI) | payer BC, OTHER ==
[~2020-12-29] VITALS: Ht 157.5 cm; Wt 91.8 kg
[~2020-12-29 09:33] MED LIST changes: +NS IV ONE; +TEPROTUMUMAB TRBW IV ONE
[2020-12-29 09:35] VITALS: BP 166/87
== END 2020-12-29 11:45 | disposition home or self-care (01) ==
LOC: M INFU 09:33
PROVIDERS: ATTEND Ophthalmology
DX: E05.00 Thyrotoxicosis with diffuse goiter without thyrotoxic crisis or storm (principal); Z88.1 Allergy status to other antibiotic agents
CPT/HCPCS: 96365; J3241

== ENCOUNTER 2021-01-19 08:55 | Outpatient (CLI) | payer BC, OTHER ==
[~2021-01-19] VITALS: Ht 157.5 cm; Wt 90.9 kg
[~2021-01-19 08:55] MED LIST changes: -NS IV ONE; -TEPROTUMUMAB TRBW IV ONE; +methylPREDNISolone 250 MG in D5W 100 ML IV PRN
[2021-01-19 09:00] VITALS: BP 148/83
[2021-01-19] MEDS ORDERED: TEPROTUMUMAB TRBW IV ONE (09:00)
[2021-01-19] MEDS ORDERED: NS IV ONE (09:00)
[2021-01-19 10:00] VITALS: BP 148/83
[2021-01-19 10:31] VITALS: BP 138/63
[2021-01-19 11:32] VITALS: BP 159/85
== END 2021-01-19 11:40 | disposition home or self-care (01) ==
LOC: M INFU 08:55
PROVIDERS: ATTEND Ophthalmology
DX: E05.00 Thyrotoxicosis with diffuse goiter without thyrotoxic crisis or storm (principal); Z88.1 Allergy status to other antibiotic agents
CPT/HCPCS: 96365; 96366; J3241

== ENCOUNTER 2021-02-09 08:03 | Outpatient (CLI) | payer BC, OTHER ==
[~2021-02-09] VITALS: Ht 162.6 cm; Wt 90.9 kg
[~2021-02-09 08:03] MED LIST changes: -methylPREDNISolone 250 MG in D5W 100 ML IV PRN
[2021-02-09 08:32] VITALS: BP 140/72
[2021-02-09] MEDS ORDERED: TEPROTUMUMAB TRBW IV ONE (09:00)
[2021-02-09] MEDS ORDERED: NS IV ONE (09:00)
[2021-02-09 10:05] VITALS: BP 133/71
[2021-02-09 10:27] VITALS: BP 138/68
== END 2021-02-09 10:30 | disposition home or self-care (01) ==
LOC: M INFU 08:03
PROVIDERS: ATTEND Ophthalmology
DX: E05.00 Thyrotoxicosis with diffuse goiter without thyrotoxic crisis or storm (principal); Z88.1 Allergy status to other antibiotic agents
CPT/HCPCS: 96365; J3241

== ENCOUNTER 2021-03-02 08:12 | Outpatient (CLI) | payer BC, OTHER ==
[2021-03-02 08:23] VITALS: BP 132/64
[2021-03-02] MEDS ORDERED: TEPROTUMUMAB TRBW IV ONE (09:00)
[2021-03-02] MEDS ORDERED: NS IV ONE (09:00)
[2021-03-02 10:40] VITALS: BP 141/81
== END 2021-03-02 10:40 | disposition home or self-care (01) ==
LOC: M INFU 08:12
PROVIDERS: ATTEND Ophthalmology
DX: E05.00 Thyrotoxicosis with diffuse goiter without thyrotoxic crisis or storm (principal); Z88.1 Allergy status to other antibiotic agents
CPT/HCPCS: 96365; J3241

== ENCOUNTER 2021-03-23 07:41 | Outpatient (CLI) | payer BC, OTHER ==
[~2021-03-23] VITALS: Ht 157.5 cm; Wt 90.9 kg
[2021-03-23 08:00] VITALS: BP 164/84
[2021-03-23] MEDS ORDERED: NS IV ONE (09:00)
[2021-03-23] MEDS ORDERED: TEPROTUMUMAB TRBW IV ONE (09:00)
[2021-03-23 10:25] VITALS: BP 164/79
== END 2021-03-23 10:24 | disposition home or self-care (01) ==
LOC: M INFU 07:41
PROVIDERS: ATTEND Ophthalmology
DX: E05.00 Thyrotoxicosis with diffuse goiter without thyrotoxic crisis or storm (principal); Z88.1 Allergy status to other antibiotic agents
CPT/HCPCS: 96365; 96366; J3241

== ENCOUNTER 2021-04-13 08:36 | Outpatient (CLI) | payer BC, OTHER ==
[~2021-04-13] VITALS: Ht 157.5 cm; Wt 91.0 kg
[2021-04-13 08:57] VITALS: BP 135/84
[2021-04-13] MEDS ORDERED: NS IV ONE (09:00)
[2021-04-13] MEDS ORDERED: TEPROTUMUMAB TRBW IV ONE (09:00)
[2021-04-13 11:05] VITALS: BP 146/89
== END 2021-04-13 11:05 | disposition home or self-care (01) ==
LOC: M INFU 08:36
PROVIDERS: ATTEND Ophthalmology
DX: E05.00 Thyrotoxicosis with diffuse goiter without thyrotoxic crisis or storm (principal); Z88.1 Allergy status to other antibiotic agents
CPT/HCPCS: 96365; J3241

== ENCOUNTER 2021-05-04 09:01 | Outpatient (CLI) | payer BC, OTHER ==
[~2021-05-04] VITALS: Ht 157.5 cm; Wt 91.0 kg
[~2021-05-04 09:01] MED LIST changes: -LEVO500T3 PO; +LEVO500T4 PO; -MONT10TA10 PO; +MONT10TA97 PO; +NS IV ONE; +TEPROTUMUMAB TRBW IV ONE
[2021-05-04 09:05] VITALS: BP 145/89
[2021-05-04 11:00] VITALS: BP 141/64
== END 2021-05-04 11:00 | disposition home or self-care (01) ==
LOC: M INFU 09:01
PROVIDERS: ATTEND Ophthalmology
DX: E05.00 Thyrotoxicosis with diffuse goiter without thyrotoxic crisis or storm (principal); Z88.1 Allergy status to other antibiotic agents
CPT/HCPCS: 96365; J3241

== ENCOUNTER → 2022-08-24 | Outpatient (REF) | payer BC, OTHER ==
[~2022-08-24] MED LIST changes: +LEVO1TAB39 PO; -LEVO500T4 PO; -NS IV ONE; -OLOP0.1D OU; +OLOP5DRO17 OU; -TEPROTUMUMAB TRBW IV ONE
== END ==
LOC: M LAB REF 17:03
PROVIDERS: ATTEND Otolaryngology
DX: B37.9 Candidiasis, unspecified (principal)

== ENCOUNTER → 2022-11-21 | Outpatient (CLI) | payer BC, OTHER ==
[2022-11-21 12:24] LABS: THYROID STIMULATING HORMONE 1.241 uIU/ML (0.55-4.78); TOTAL T3 97.2 NG/DL (60.0-181.0)
== END ==
LOC: M LAB 11:18
PROVIDERS: ATTEND Internal Medicine Endocrinology, Diabetes & Metabolism
DX: E05.90 Thyrotoxicosis, unspecified without thyrotoxic crisis or storm (principal)

== ENCOUNTER → 2025-02-19 | Outpatient (CLI) | payer BC, OTHER ==
[~2025-02-19] MED LIST changes: -ADV100INH; -ADV250INH INH; +ADVA1AER8; +ADVA1AER9 INH; +METH-1387; -METH10TA
[2025-02-19 13:58] LABS: BASO # 0.1 10^3/uL (0.0-0.2); BASO % 0.8 % (0.0-1.0); EOS # 0.6 10^3/uL (0.0-0.5); EOS % 5.7 % (0.0-3.0); LYMPH # 2.8 10^3/uL (1.5-5.0); LYMPH % 27.8 % (24.0-44.0); MONO # 0.8 10^3/uL (0.0-0.8); MONO % 8.2 % (2.0-8.0); NEUTROPHILS # 5.7 10^3/uL (1.5-8.5); NEUTROPHILS % 57.2 % (36.0-66.0); PLATELET COUNT, AUTOMATED 323 10^3/uL (150-450)
== END ==
LOC: M LAB 11:51
PROVIDERS: ATTEND Nurse Practitioner Family
DX: J45.30 Mild persistent asthma, uncomplicated (principal)